=== PATIENT | male | born 1950 | race Caucasian/White ===

== ENCOUNTER 2017-04-09 09:32 | Day surgery (SDC) | payer OTHER ==
[2017-04-09] MEDS ORDERED: LIDOCAINE HCL/PF 2% SDV 5ML VIAL ONE (09:51)
[2017-04-09] MEDS ORDERED: PROPOFOL 20 ML ONE ×5 (09:51)
[2017-04-09 10:00] VITALS: BMI 23.3
[2017-04-09 11:08] VITALS: TEMP 97.5
[2017-04-09 14:55] VITALS: BP 107/64; PULSE 69
== END 2017-04-09 12:50 | disposition home or self-care (01) ==
LOC: JASU-ENDO 09:32
PROVIDERS: ATTEND Internal Medicine Gastroenterology
PROC: 0DJD8ZZ Inspection of Lower Intestinal Tract, Via Natural or Artificial Opening Endoscopic (ICD-10-PCS; principal; 2017-04-09 10:00)
DX: Z12.11 Encounter for screening for malignant neoplasm of colon (principal); Z86.010 Personal history of colon polyps; K57.30 Diverticulosis of large intestine without perforation or abscess without bleeding; Z79.891 Long term (current) use of opiate analgesic; M54.89 Other dorsalgia

== ENCOUNTER 2017-09-09 07:41 | Day surgery (SDC) | payer OTHER ==
[2017-09-04 12:57] VITALS: BMI 20.9
[2017-09-09] MEDS ORDERED: BSS (NA/CA/MG/K) BALANCED SALT SOLUTION OPHTH SOLN 15 ML BOTTLE ONE (08:03)
[2017-09-09] MEDS ORDERED: CARBACHOL 0.01% INTRA-OCULAR 1.5 ML VIAL ONE (08:04)
[2017-09-09] MEDS: PHENYLEPHRINE 2.5% OPHTH SOLN 15 ML BOTTLE ONE ×3 (08:20→08:30)
[2017-09-09] MEDS: TROPICAMIDE 1% OPHTH SOLN 15 ML BOTTLE ONE ×3 (08:20→08:30)
[2017-09-09] MEDS: CIPROFLOXACIN 0.3% EYE DROPS 5 ML BOTTLE ONE ×3 (08:20→08:30)
[2017-09-09] MEDS: CYCLOPENTOLATE 2% OPHTH SOLN 2 ML BOTTLE ONE ×3 (08:20→08:30)
[2017-09-09] MEDS ORDERED: MIDAZOLAM HCL 2 MG/2 ML SINGLE DOSE VIAL ONE ×2 (09:01→09:28)
[2017-09-09] MEDS ORDERED: ONDANSETRON 4 MG/2 ML VIAL ONE (09:23)
[2017-09-09 10:20] VITALS: TEMP 97.5
[2017-09-09 10:52] VITALS: BP 100/73; PULSE 60
--- NOTE | 2017-09-11 11:08 | OP ---
DATE OF OPERATION: 09/09/2017 OPERATIVE PROCEDURE: Lens Phacoemulsification with Posterior Chamber Intraocular Lens Placement, Right Eye PREOPERATIVE DIAGNOSIS: Visually Significant Cataract of Right Eye POSTOPERATIVE DIAGNOSIS: Visually Significant Cataract of Right Eye SURGEON: Kulwant Shaw M.D. ANESTHESIA: MAC PROCEDURE: The patient was brought to the operating room and placed under monitored anesthesia care by Anesthesia. A drop of Tetracaine was then placed over the right eye. The patient was then prepped and draped in the usual sterile manner. A speculum was then placed over the right eye. The eye was then well irrigated with copious amounts of BSS (balanced salt solution). The operating microscope was then moved into position. A paracentesis was performed using a 15 degree blade. At this point 0.5 mL of 1% preservative free-lidocaine was injected into the anterior chamber. Amvisc plus was then injected into the anterior chamber. A clear corneal incision was then formed using a 2.2-mm keratome. A capsulorrhexis was then performed in a continuous circular fashion beginning with a cystotome completed with an Utratas forceps. Hydrodissection was then performed using BSS on a cannula. The phaco probe was then introduced through the corneal wound and the cataract was removed using the phaco chop technique. Approximately 3 seconds of absolute phaco time was used. The remaining cortex was then removed using irrigation and aspiration with an I/A probe. The capsule was then filled with regular Amvisc and the capsule was noted to be intact. A previously selected foldable posterior chamber intraocular lens was then injected into the capsule through the corneal wound using a lens injector. It was then dialed into position using a Sinskey hook. The Amvisc was then removed using irrigation and aspiration. Miostat was then injected through the paracentesis to constrict the pupil. The paracentesis and corneal wound were then hydrated and noted to be water tight. A drop of Maxitrol was then placed over the eye. The speculum was removed and clear shield was taped over the eye. The patient tolerated the procedure well and there were no surgical complications. The patient was asked to follow up in my office the next day. EDILSON MANCIA M.D. [id number]
== END 2017-09-09 10:50 | disposition home or self-care (01) ==
LOC: FASU 07:41
PROVIDERS: ATTEND Ophthalmology
PROC: 08RJ3JZ Replacement of Right Lens with Synthetic Substitute, Percutaneous Approach (ICD-10-PCS; principal; 2017-09-09 09:18)
DX: H26.8 Other specified cataract (principal)

== ENCOUNTER 2020-08-02 17:32 | Emergency (ER) | payer OTHER ==
--- OUTSIDE RECORDS SUMMARY | 2020-08-02 17:40 | XMS ---
:1950 Author Organization [facility] Care Team Providers Name Role Phone Kojo Mejia Unavailable Unavailable Roberto, Kojo Unavailable Unavailable Roberto, Kojo Unavailable Unavailable Roberto, Kojo Unavailable Unavailable Roberto, Kojo Unavailable Unavailable Roberto, Kojo Unavailable Unavailable Roberto, Kojo Unavailable Unavailable Roberto, Kojo Unavailable Unavailable Roberto, Kojo Unavailable Unavailable LUIS ANTONIO MEDRANO Unavailable Unavailable YVONNE HERNANDEZ Unavailable Unavailable Re-disclosure Warning The records that you are about to access may contain information from federally- assisted alcohol or drug abuse programs. If such information is present, then the following federally mandated warning applies: This information has been disclosed to you from records protected by federal confidentiality rules (42 CFR part 2). The federal rules prohibit you from making any further disclosure of this information unless further disclosure is expressly permitted by the written consent of the person to whom it pertains or as otherwise permitted by 42 CFR part 2. A general authorization for the release of medical or other information is NOT sufficient for this purpose. The Federal rules restrict any use of the information to criminally investigate or prosecute any alcohol or drug abuse patient.The records that you are about to access may contain highly sensitive health information, the redisclosure of which is protected by Article 27-F of the [place] State Public Health law. If you continue you may haveaccess to information: Regarding HIV / AIDS; Provided by facilities licensed or operated by the [facility] Office of Mental Health; or Provided by the [facility] Office for People With Developmental Disabilities. If such information is present, then the following [facility] mandated warning applies: This information has been disclosed to you from confidential records which are protected by state law. State law prohibits you from making any further disclosure of this information without the specific written consent of the person to whom it pertains, or as otherwise permitted by law. Any unauthorized further disclosure in violation of state law may result in a fine or retirement sentence or both. A general authorization for the release of medical or other information is NOT sufficient authorization for further disclosure. Encounters Encounter Providers Location Date Indications Data Source(s ) Attender: Kojo 04/20/2020 [facility] ( [facility] 12:00:00 AM EDT Medical, ) Office Outpatient Attender: DAVID 03/25/2020 10:04:00 Z03.818 [facility] StreetCHERELLE RendonAdmitter: [facility] YVONNE HERNANDEZ [facility] n E.Referrer: YVONNE HERNANDEZ Z03.818 Outpatient Attender: MITCHELL 03/10/2020 03:50:00 Z03.818 [facility]O [facility] Z03.818 Outpatient Attender: MITCHELL 02/25/2020 03:12:00 Z03.818 [facility] OSMANY [facility]O [facility] Z03.818 Outpatient Attender: MITCHELL, 01/05/2020 06:00:00 Z03.818 [facility] MIT[facility]LL [facility] Z03.818 Medications Medication Brand Start Product Dose Route Administrative Pharmacy [facility] Indications Reaction Description Data Name Date Form Instructions Instructions Source(s) Alprazolam ALPRAZ 04/09/ TABLET 60 complet ALPRA ZOLAM [facility] (St 0.5 MG Oral OLAM:3 2019 ed [facility] Tablet 83977 12:00: Medical, ALPRAZOLAM: 00 AM PC) [id number] EDT Alprazolam ALPRAZ 03/10/ TABLET 60 complet ALPRA ZOLAM [facility] (St 0.5 MG Oral OLAM:3 2019 ed [facility] Tablet 11364 12:00: Medical, ALPRAZOLAM: 00 AM PC) [id number] EDT 120 ACTUAT SYMBIC 02/07/ AEROSOL 3 complet SYMB ICORT [facility] (St Budesonide ORT:12 2019 ed [facility] 0.16 64597 12:00: Medical, MG/ACTUAT / 00 AM PC) formoterol EDT fumarate 0.0045 MG/ACTUAT Metered Dose Inhaler [Symbicort] SYMBICORT:1 [id number] Alprazolam ALPRAZ 02/07/ TABLET 60 complet ALPRA ZOLAM [facility] (St 0.5 MG Oral OLAM:3 2019 ed [facility] Tablet 84791 12:00: Medical, ALPRAZOLAM: 00 AM PC) [id number] EDT Alprazolam ALPRAZ 01/05/ TABLET 60 complet ALPRA ZOLAM [facility] (St 0.5 MG Oral OLAM:3 2019 ed [facility] Tablet 91797 12:00: Medical, ALPRAZOLAM: 00 AM PC) [id number] EDT MEDROL 11/18/ 6 complet MEDROL [facility] (St DOSEPAK:834 2019 ed DOSEPAK [facility] 023 12:00: Medical, 00 AM PC) EST 200 ACTUAT PROAIR 11/18/ AEROSOL 1 complet PROA IR HFA [facility] (St Albuterol HFA:74 2019 ed [facility] 0.09 5752 12:00: Medical, MG/ACTUAT 00 AM PC) Metered EST Dose Inhaler [ProAir] PROAIR HFA:[id number] Insurance Providers Payer name Policy type Policy ID Covered Covered constitution party's Policy P mami / Coverage constitution party ID relationship to Go Inf ormation type go [employer] [id number] SP [id number] [employer]ANCE [employer] MEDICARE [id number] SP [id number] N02 [employer] [id number] 1 [id number] [place] [id number] 1 [id number] PART B DOWNSTATE INS [id number] SP [id number] MEDICARE [id number] SP [id number] [id number] [employer] LIFE [id number] SP [id number] [place]LOBE [place] [id number] SP [id number] [place] [id number] SP [id number] [place] [id number] SP [id number] A Problems, Conditions, and Diagnoses Code Display Name Description Problem Type Effective Data Sour ce(s) Dates B97.32 Oncovirus as the ONCOVIRUS THE Problem 04/20/2020 ME [facility] (St cause of diseases CAUSE OF DISEASES 12:00:00 AM [facility], classified CLASSIFIED EDT PC) elsewhere ELSEWHERE Z76.0 Encounter for ENCOUNTER FOR Problem 11/18/2019 [facility] ( St issue of repeat ISSUE OF REPEAT 12:00:00 AM [facility], prescription PRESCRIPTION EST PC) I87.2 Venous VENOUS Problem 11/11/2019 [facility] (St insufficiency INSUFFICIENCY 12:00:00 AM [facility], (chronic) (CHRONIC) EST PC) (peripheral) (PERIPHERAL) M79.602 Pain in left arm PAIN IN LEFT ARM Problem 11/11/2019 [facility] (St 12:00:00 AM [facility], EST PC) R60.0 Localized edema LOCALIZED EDEMA Problem 06/10/2019 [facility] EN (St 12:00:00 AM [facility], EDT PC) Z03.818 Encounter for ENCNTR FOR OBS FOR Diagnosis 03/25/2020 [place] observation for SUSP EXPSR TO OTH 10:04:00 AM [facility] suspected exposure BIOLG AGENTS RULED EDT Care to other [employer] biological agents ruled out Surgeries/Procedures Procedure Description Date Indications Data Source(s) Documentation of current 04/20/2020 [facility] ([facility] (procedure) 12:00:00 AM [facility] Zendejas) OFFICE OUTPATIENT VISIT 04/20/2020 [facility] ([facility] 15 MINUTES 12:00:00 AM CECILIA Forde) Documentation of current 11/18/2019 [facility] ([facility] (procedure) 12:00:00 AM CECILIA Arenas) Documentation of current 11/18/2019 [facility] ([facility] (procedure) 12:00:00 AM CECILIA Arenas) Documentation of current 11/18/2019 [facility] ([facility] (procedure) 12:00:00 AM CECILIA Arenas) Documentation of current 11/18/2019 [facility] ([facility] (procedure) 12:00:00 AM CECILIA Arenas) Documentation of current 11/18/2019 [facility] ([facility] (procedure) 12:00:00 AM CECILIA Arenas) Documentation of current 11/18/2019 [facility] ([facility] (procedure) 12:00:00 AM CECILIA Arenas) Documentation of current 11/18/2019 [facility] ([facility] (procedure) 12:00:00 AM CECILIA Arenas) Documentation of current 11/18/2019 [facility] ([facility] (procedure) 12:00:00 AM EST Grayson douglass, CECILIA) OFFICE OUTPATIENT VISIT 11/18/2019 [facility] ([facility] 15 MINUTES 12:00:00 AM PATRICIA Tovar, PC) Documentation of current 11/11/2019 [facility] ([facility] (procedure) 12:00:00 AM PATRICIA douglass, PC) Documentation of current 11/11/2019 [facility] ([facility] (procedure) 12:00:00 AM CECILIA Arenas) Documentation of current 11/11/2019 [facility] ([facility] (procedure) 12:00:00 AM CECILIA Arenas) OFFICE OUTPATIENT VISIT 11/11/2019 [facility] ([facility] 25 MINUTES 12:00:00 AM PATRICIA Tovar PC) Documentation of current 06/10/2019 [facility] ([facility] (procedure) 12:00:00 AM HERMINIA douglass, CECILIA) Documentation of current 06/10/2019 [facility] ([facility] (procedure) 12:00:00 AM CECILIA Zendejas) Documentation of current 06/10/2019 [facility] ([facility] (procedure) 12:00:00 AM HERMINIA douglass, CECILIA) Documentation of current 06/10/2019 [facility] ([facility] (procedure) 12:00:00 AM CECILIA Zendejas) Documentation of current 06/10/2019 [facility] ([facility] (procedure) 12:00:00 AM HERMINIA douglass, PC) Documentation of current 06/10/2019 [facility] ([facility] (procedure) 12:00:00 AM CECILIA Zendejas) Documentation of current 06/10/2019 [facility] ([facility] (procedure) 12:00:00 AM HERMINIA douglass, PC) OFFICE OUTPATIENT VISIT 06/10/2019 [facility] ([facility] 25 MINUTES 12:00:00 AM EDT Medical, PC) Results ID Date Data Source [id number] 07/10/2020 01:29:00 PM EDT [facility] Name Value Range Interpretation Code Description Data Chelsy rce(s) Supporting Document(s ) SARS-CoV-2 [facility] Ql KEYANNA+probe This lab was ordered by [facility] nd reported by [facility]. ID Date Data Source [id number] 03/25/2020 12:00:00 AM EDT [facility] Name Value Range Interpretation Code Description Data Chelsy rce(s) Supporting Document(s ) 2018-nCoV [facility] RNA XXX KEYANNA+probe- Imp This lab was ordered by [facility] and reported by [email or web address] ID Date Data Source [id number] 03/10/2020 12:00:00 AM EDT [facility] Name Value Range Interpretation Code Description Data Chelsy rce(s) Supporting Document(s ) nCoV [facility] RNA XXX KEYANNA+probe- Imp This lab was ordered by [facility] and reported by [email or web address] ID Date Data Source [id number] 02/25/2020 12:00:00 AM EDT [facility] Name Value Range Interpretation Code Description Data Chelsy rce(s) Supporting Document(s ) nCoV [facility] RNA XXX KEYANNA+probe- Imp This lab was ordered by [facility] and reported by [email or web address] ID Date Data Source [id number] 02/05/2020 12:00:00 AM EDT [facility] Name Value Range Interpretation Code Description Data Chelsy rce(s) Supporting Document(s ) nCoV [facility] RNA XXX KEYANNA+probe- Imp This lab was ordered by [facility] and reported by [email or web address] 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[employer]/ for [employer]/ for third time-has 5 third time-has 5 kids kids Smoking 04/20/2020 Unknown if ever completed Unknown if ever [facility] (St 12:00:00 AM EDT smoked smoked [facility], ) Vital Signs ID Date Data Source UNK Name Value Range Interpretation Code Description Data Source(s) Heart rate 94 /min 94 /min [facility] ([facility] [place], [place] , ) Respiratory rate 15 /min 15 /min [facility] ( [facility]) Body mass index 22.6 kg/m2 22.6 kg/m2 [facility] (S t (BMI) [Ratio] [facility], ) Diastolic blood 70 mm[Hg] 70 mm[Hg] [facility] (S t pressure [facility]) Systolic blood 114 mm[Hg] 114 mm[Hg] [facility] ([facility]) Body weight 153 lb 153 lb [facility] ([facility]) Body height 69 in 69 in [facility] ([facility]) Heart rate 76 /min 76 /min [facility] ([facility]) Respiratory rate 16 /min 16 /min [facility] ( [facility]) Body temperature 98.2 F 98.2 F [facility] ( [facility]) Diastolic blood 72 mm[Hg] 72 mm[Hg] [facility] (S t pressure [facility]) Systolic blood 116 mm[Hg] 116 mm[Hg] [facility] ([facility]) Heart rate 70 /min 70 /min [facility] ([facility]) Respiratory rate 15 /min 15 /min [facility] ( [facility]) Body mass index 23.3 kg/m2 23.3 kg/m2 [facility] (S t (BMI) [Ratio] [facility], ) Diastolic blood 70 mm[Hg] 70 mm[Hg] [facility] (S t pressure [facility]) Systolic blood 116 mm[Hg] 116 mm[Hg] [facility] ([facility]) Body weight 158 lb 158 lb [facility] ([facility]) Body height 69 in 69 in [facility] ([facility]) Heart rate 88 /min 88 /min [facility] ([facility]) Respiratory rate 14 /min 14 /min [facility] ( [facility]) Inhaled oxygen 97 % 97 % [facility] ([facility]) Body mass index 24.7 kg/m2 24.7 kg/m2 [facility] (S (BMI) [Ratio] [facility]) Diastolic blood 76 mm[Hg] 76 mm[Hg] [facility] (S t pressure [facility]) Systolic blood 110 mm[Hg] 110 mm[Hg] [facility] ([facility]) Body weight 167 lb 167 lb [facility] ([facility]) Body height 69 in 69 in [facility] ([facility])
[2020-08-02 17:41] VITALS: BP 123/74; PULSE 88; TEMP 97.9; BMI 20.9
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
[2020-08-02] MEDS ORDERED: SODIUM CHLORIDE 0.9% 1000 ML INFUS.BAG IV ONE (18:02)
[2020-08-02] MEDS ORDERED: ACETAMINOPHEN 1000 MG/100 ML VIAL (NON FORMULARY) IVPB ONE (18:02)
[2020-08-02] MEDS ORDERED: ACETAMINOPHEN INJECTION 100 ML IVPB ONE (18:20)
[2020-08-02 18:53] LABS: ALBUMIN 4.4 g/dl (3.4-5.0); BILIRUBIN,TOTAL 1.2 mg/dl (0.2-1); CALCIUM 8.7 mg/dl (8.5-10); CREATININE 0.9 mg/dl (0.55-1.3); TOT PROT 7.7 g/dl (6.4-8.2)
[2020-08-02 18:55] LABS: POTASSIUM 5.4 mmol/L (3.5-5.1)
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
== END 2020-08-02 21:32 | disposition home or self-care (01) ==
LOC: FER 17:32
PROC: 3E0333Z Introduction of Anti-inflammatory into Peripheral Vein, Percutaneous Approach (ICD-10-PCS; principal; 2020-08-02)
DX: S83.91XA Sprain of unspecified site of right knee, initial encounter (principal)
CPT/HCPCS: 36415; 71046-TC-FY; 71260-TC; 73030-TC-LT-FY; 73130-TC-LT-FY; 73562-TC-RT-FY; 80053; 99285-25; J0131; Q9967

== ENCOUNTER 2020-11-05 19:57 | Emergency (ER) | payer OTHER ==
[2020-11-05 20:21] VITALS: BP 146/86; PULSE 83; TEMP 97.8; BMI 22.9
== END 2020-11-05 20:16 | disposition home or self-care (01) ==
LOC: FER 19:57
DX: Z73.6 Limitation of activities due to disability (principal)
CPT/HCPCS: 99283-25

== ENCOUNTER 2021-11-22 22:10 | Inpatient (IN) | payer OTHER ==
[2021-11-22 23:34] LABS: ALBUMIN 2.3 g/dl (3.4-5.0); BILIRUBIN,TOTAL 0.4 mg/dl (0.2-1); CALCIUM 8.7 mg/dl (8.5-10); CREATININE 0.8 mg/dl (0.55-1.3); TOT PROT 7.3 g/dl (6.4-8.2)
[2021-11-22] MEDS ORDERED: SODIUM CHLORIDE 1,000 ML IV STA (23:44)
[2021-11-23 01:12] LABS: BASO % 0.3 % (0-2.0); EOS % 0.1 % (0-4.5); HEMATOCRIT 25.3 % (35.4-49); HEMOGLOBIN 8.6 GM/dL (11.7-16.9); LYMPH % 10.1 % (8-40); MCHC 33.8 g/dl (32.0-35.9); MEAN CELL VOLUME 91.6 fl (80-96); MEAN PLT VOLUME 7.4 fl (7.5-11.1); MONO % 7.3 % (3.8-10.2); NEUT % 82.2 % (42.8-82.8); PLATELET COUNT 789 10^3/uL (134-434); RBC 2.76 M/mm3 (4.00-5.60); RDW 14.3 % (11.9-15.9)
[2021-11-23 07:49] LABS: EPITHELIAL CELLS RARE /hpf; URIC ACID CRYSTALS 1+ /hpf (NONE SEEN); URINE MUCUS 1+
[2021-11-23 08:18] LABS: COCAINE, UR NEGATIVE (NEGATIVE); PHENCYCLIDINE,URINE NEGATIVE (NEGATIVE); URINE BARBITURATES NEGATIVE (NEGATIVE)
[2021-11-23 08:19] LABS: ALBUMIN 1.7 g/dl (3.4-5.0); BILIRUBIN,TOTAL 0.4 mg/dl (0.2-1); CALCIUM 7.9 mg/dl (8.5-10); CREATININE 0.8 mg/dl (0.55-1.3); MAGNESIUM 1.7 mg/dL (1.8-2.4); TOT PROT 5.6 g/dl (6.4-8.2)
[2021-11-23 08:40] LABS: METHADONE, UR POSITIVE (NEGATIVE); OPIATES, URI POSITIVE (NEGATIVE); URINE AMPHETAMINES NEGATIVE (NEGATIVE); URINE BENZODIAZEPINES POSITIVE (NEGATIVE)
[2021-11-23] MEDS ORDERED: methaDONE HCL 40 MG DISPERSABLE TABLET ONE (09:16)
[2021-11-23] MEDS ORDERED: methaDONE HCL 10 MG TABLET ONE (09:16)
[2021-11-23] MEDS ORDERED: MAGNESIUM SULF 50% (8.12 MEQ/2 ML-1 GM VIAL) IVPB ONE (09:31)
[2021-11-23] MEDS ORDERED: ACETAMINOPHEN 325 MG TABLET (FP) PO PRN (09:37)
[2021-11-23 09:46] LABS: BASO % 0.1 % (0-2.0); EOS % 0.1 % (0-4.5); HEMOGLOBIN 7.3 GM/dL (11.7-16.9); LYMPH % 12.4 % (8-40); MCH 30.1 pg (25.7-33.7); MCHC 33.2 g/dl (32.0-35.9); MEAN CELL VOLUME 90.8 fl (80-96); MEAN PLT VOLUME 6.7 fl (7.5-11.1); MONO % 9.6 % (3.8-10.2); NEUT % 77.8 % (42.8-82.8); PLATELET COUNT 538 10^3/uL (134-434); RBC 2.43 M/mm3 (4.00-5.60); WHITE BLOOD COUNT 12.4 K/mm3 (4.0-10.0)
[2021-11-23] MEDS ORDERED: methaDONE 80 MG, methaDONE 20 MG PO SCH (10:00)
[2021-11-23] MEDS ORDERED: MAGNESIUM 1GM/D5W - 1 GM/100 ML IVPB IVPB ONE (10:00)
[2021-11-23] MEDS ORDERED: methaDONE HCL 40 MG DISPERSABLE TABLET PO SCH (10:00)
[2021-11-23] MEDS ORDERED: CEFTRIAXONE 1 GM in DEXTROSE 5%-WATER - 50 ML IVPB SCH (11:15)
[2021-11-23] MEDS ORDERED: DOXYCYCLINE INJECTION 100 MG in DEXTROSE 5%-WATER 100 ML IVPB SCH (11:30)
[2021-11-23] MEDS ORDERED: PIPERACILLIN/TAZOB 3.375 GM 3.375 GM in DEXTROSE 5%-WATER - 50 ML IVPB SCH (11:30)
[2021-11-23] MEDS ORDERED: DEXTROSE 5%-WATER - 50 ML IVPB ONE ×2 (12:44→17:14)
[2021-11-23] MEDS ORDERED: PIPERACILLIN/TAZOBACTAM 3.375 GM VIAL IVPB ONE ×2 (12:44→17:14)
[2021-11-23] MEDS ORDERED: ALPRAZolam 0.25 MG TABLET PO SCH (13:15)
[2021-11-23] MEDS: POTASSIUM CHLORIDE TABS 20 MEQ TABLET.ER (FP) PO SCH ×2 (15:00→20:00)
[2021-11-23] MEDS ORDERED: ENOXAPARIN NA (PORCINE) 40 MG/0.4 ML DISP.SYRIN SQ SCH (15:00)
[2021-11-23] MEDS: SODIUM CHLORIDE 1,000 ML IV SCH (17:00)
[2021-11-23] MEDS: PIPERACILLIN/TAZOB 3.375 GM 3.375 GM in DEXTROSE 5%-WATER - 50 ML IVPB SCH (17:22)
[2021-11-23] MEDS ORDERED: POTASSIUM CHLORIDE TABS 20 MEQ TABLET.ER (FP) PO SCH (21:00)
[2021-11-23] MEDS: ALPRAZolam 0.25 MG TABLET PO SCH (23:15)
[2021-11-23] MEDS ORDERED: DEXTROSE 50%-WATER 25 GM/50 ML DISP.SYRIN ONE (23:46)
[2021-11-24] MEDS ORDERED: DEXTROSE 50%-WATER - 25 GM/50 ML VIAL IVPUSH ONE (00:04)
[2021-11-24] MEDS ORDERED: PIPERACILLIN/TAZOBACTAM 3.375 GM VIAL IVPB ONE ×3 (01:08→17:31)
[2021-11-24] MEDS ORDERED: DEXTROSE 5%-WATER - 50 ML IVPB ONE ×3 (01:09→17:31)
[2021-11-24] MEDS: ACETAMINOPHEN 325 MG TABLET (FP) PO PRN ×2 (01:43→22:14)
[2021-11-24] MEDS: PIPERACILLIN/TAZOB 3.375 GM 3.375 GM in DEXTROSE 5%-WATER - 50 ML IVPB SCH ×3 (02:28→17:36)
[2021-11-24] MEDS ORDERED: SODIUM CHLORIDE 500 ML IV STA (02:52)
[2021-11-24 03:23] LABS: HEMATOCRIT 21.4 % (35.4-49); MCH 29.5 pg (25.7-33.7); MCHC 32.7 g/dl (32.0-35.9); MEAN CELL VOLUME 90.1 fl (80-96); MEAN PLT VOLUME 6.3 fl (7.5-11.1); PLATELET COUNT 502 10^3/uL (134-434); RBC 2.38 M/mm3 (4.00-5.60); WHITE BLOOD COUNT 13.4 K/mm3 (4.0-10.0)
[2021-11-24 03:46] LABS: CALCIUM 7.9 mg/dL (8.5-10.1)
[2021-11-24 03:49] LABS: CREATININE 0.7 mg/dL (0.55-1.3)
[2021-11-24 03:51] LABS: BILIRUBIN,TOTAL 0.3 mg/dL (0.2-1); TOT PROT 5.8 g/dl (6.4-8.2)
[2021-11-24 04:15] LABS: ALBUMIN 1.6 g/dl (3.4-5.0)
[2021-11-24] MEDS ORDERED: LORazepam 2 MG/ML SDV VIAL IVPUSH ONE (05:36)
[2021-11-24] MEDS ORDERED: BISACODYL 5 MG TABLET.DR (FP) PO ONE (05:52)
[2021-11-24 09:02] LABS: BASO % 0.3 % (0-2.0); EOS % 0.2 % (0-4.5); HEMATOCRIT 24.5 % (35.4-49); HEMOGLOBIN 7.8 GM/dL (11.7-16.9); LYMPH % 9.9 % (8-40); MCH 29.7 pg (25.7-33.7); MEAN CELL VOLUME 92.8 fl (80-96); MEAN PLT VOLUME 6.2 fl (7.5-11.1); MONO % 8.9 % (3.8-10.2); NEUT % 80.7 % (42.8-82.8); PLATELET COUNT 574 10^3/uL (134-434); RBC 2.64 M/mm3 (4.00-5.60); RDW 14.1 % (11.9-15.9)
[2021-11-24] MEDS ORDERED: methaDONE HCL 10 MG TABLET ONE ×3 (09:28→09:43)
[2021-11-24] MEDS ORDERED: methaDONE HCL 40 MG DISPERSABLE TABLET ONE (09:43)
[2021-11-24 09:50] LABS: BLOOD UREA NITROGEN 13.4 mg/dL (7-18)
[2021-11-24 09:51] LABS: ALBUMIN 1.6 g/dl (3.4-5.0)
[2021-11-24 09:52] LABS: MAGNESIUM 2.1 mg/dL (1.8-2.4)
[2021-11-24 09:54] LABS: PHOSPHOROUS 3.1 mg/dL (2.5-4.9)
[2021-11-24 09:55] LABS: CREATININE 0.6 mg/dL (0.55-1.3)
[2021-11-24 09:56] LABS: BILIRUBIN,TOTAL 0.3 mg/dL (0.2-1); TOT PROT 6.1 g/dl (6.4-8.2)
[2021-11-24] MEDS: methaDONE 80 MG, methaDONE 20 MG PO SCH (10:21)
[2021-11-24] MEDS: ALPRAZolam 0.25 MG TABLET PO SCH ×2 (10:22→22:09)
[2021-11-24] MEDS: ENOXAPARIN NA (PORCINE) 40 MG/0.4 ML DISP.SYRIN SQ SCH (10:24)
[2021-11-24] MEDS: SODIUM CHLORIDE 1,000 ML IV SCH ×2 (14:28→17:38)
[2021-11-24 15:51] VITALS: BMI 19.2
[2021-11-24] MEDS: ALBUTEROL SO4 2.5/IPRATROPIUM 0.5 INH SOL 3 ML VIAL.NEB. NEB SCH ×2 (16:35→20:46)
[2021-11-24] MEDS ORDERED: PIPERACILLIN/TAZOB 3.375 GM 3.375 GM in DEXTROSE 5%-WATER - 50 ML IVPB SCH (18:00)
[2021-11-24] MEDS: SENNOSIDES 8.6MG TABLET (FP) PO SCH (22:09)
[2021-11-25] MEDS ORDERED: DEXTROSE 5%-WATER - 50 ML IVPB ONE ×3 (00:48→17:15)
[2021-11-25] MEDS ORDERED: PIPERACILLIN/TAZOBACTAM 3.375 GM VIAL IVPB ONE ×3 (00:48→17:15)
[2021-11-25] MEDS: PIPERACILLIN/TAZOB 3.375 GM 3.375 GM in DEXTROSE 5%-WATER - 50 ML IVPB SCH ×3 (01:01→17:56)
[2021-11-25] MEDS: SODIUM CHLORIDE 1,000 ML IV SCH ×2 (01:40→19:19)
[2021-11-25] MEDS ORDERED: methaDONE HCL 40 MG DISPERSABLE TABLET ONE ×2 (05:23→11:19)
[2021-11-25] MEDS ORDERED: methaDONE HCL 10 MG TABLET ONE ×2 (05:23→11:19)
[2021-11-25] MEDS: methaDONE 80 MG, methaDONE 20 MG PO SCH ×2 (06:19→11:20)
[2021-11-25] MEDS: ALBUTEROL SO4 2.5/IPRATROPIUM 0.5 INH SOL 3 ML VIAL.NEB. NEB SCH ×4 (07:30→20:34)
[2021-11-25] MEDS: FLUTICASONE PROP 0.05% 16 GM NASAL SPRAY NS SCH ×2 (09:35→21:25)
[2021-11-25] MEDS: ENOXAPARIN NA (PORCINE) 40 MG/0.4 ML DISP.SYRIN SQ SCH (09:36)
[2021-11-25] MEDS: ALPRAZolam 0.25 MG TABLET PO SCH ×2 (09:36→21:26)
[2021-11-25] MEDS: SENNOSIDES 8.6MG TABLET (FP) PO SCH (21:27)
[2021-11-25] MEDS: ACETAMINOPHEN 325 MG TABLET (FP) PO PRN (21:27)
[2021-11-26] MEDS ORDERED: PIPERACILLIN/TAZOBACTAM 3.375 GM VIAL IVPB ONE ×3 (00:52→17:34)
[2021-11-26] MEDS ORDERED: DEXTROSE 5%-WATER - 50 ML IVPB ONE ×3 (00:53→17:34)
[2021-11-26] MEDS: PIPERACILLIN/TAZOB 3.375 GM 3.375 GM in DEXTROSE 5%-WATER - 50 ML IVPB SCH ×3 (01:08→17:47)
[2021-11-26] MEDS: methaDONE 80 MG, methaDONE 20 MG PO SCH ×2 (05:58→12:10)
[2021-11-26] MEDS: SODIUM CHLORIDE 1,000 ML IV SCH ×2 (06:28→17:48)
[2021-11-26] MEDS: ALBUTEROL SO4 2.5/IPRATROPIUM 0.5 INH SOL 3 ML VIAL.NEB. NEB SCH ×4 (07:30→20:54)
[2021-11-26] MEDS: ALPRAZolam 0.25 MG TABLET PO SCH ×2 (09:26→21:10)
[2021-11-26] MEDS: ENOXAPARIN NA (PORCINE) 40 MG/0.4 ML DISP.SYRIN SQ SCH (09:26)
[2021-11-26] MEDS: FLUTICASONE PROP 0.05% 16 GM NASAL SPRAY NS SCH ×2 (09:26→21:10)
[2021-11-26] MEDS ORDERED: methaDONE HCL 10 MG TABLET ONE (12:09)
[2021-11-26] MEDS ORDERED: methaDONE HCL 40 MG DISPERSABLE TABLET ONE (12:10)
[2021-11-26] MEDS: SENNOSIDES 8.6MG TABLET (FP) PO SCH (21:10)
[2021-11-26] MEDS: ACETAMINOPHEN 325 MG TABLET (FP) PO PRN (21:10)
[2021-11-27] MEDS ORDERED: PIPERACILLIN/TAZOBACTAM 3.375 GM VIAL IVPB ONE ×3 (00:08→16:59)
[2021-11-27] MEDS ORDERED: DEXTROSE 5%-WATER - 50 ML IVPB ONE ×3 (00:09→16:59)
[2021-11-27] MEDS: PIPERACILLIN/TAZOB 3.375 GM 3.375 GM in DEXTROSE 5%-WATER - 50 ML IVPB SCH ×3 (01:02→18:04)
[2021-11-27] MEDS: SODIUM CHLORIDE 1,000 ML IV SCH ×2 (02:22→18:08)
[2021-11-27] MEDS: ACETAMINOPHEN 325 MG TABLET (FP) PO PRN (04:15)
[2021-11-27] MEDS: methaDONE 80 MG, methaDONE 20 MG PO SCH ×2 (06:46→11:13)
[2021-11-27] MEDS: ALBUTEROL SO4 2.5/IPRATROPIUM 0.5 INH SOL 3 ML VIAL.NEB. NEB SCH ×4 (07:35→20:00)
[2021-11-27] MEDS ORDERED: methaDONE HCL 40 MG DISPERSABLE TABLET ONE (10:48)
[2021-11-27] MEDS ORDERED: methaDONE HCL 10 MG TABLET ONE (10:48)
[2021-11-27 10:57] LABS: HEMATOCRIT 22.5 % (35.4-49); HEMOGLOBIN 7.3 GM/dL (11.7-16.9); MCH 30.4 pg (25.7-33.7); MCHC 32.6 g/dl (32.0-35.9); MEAN CELL VOLUME 93.1 fl (80-96); MEAN PLT VOLUME 6.5 fl (7.5-11.1); PLATELET COUNT 530 10^3/uL (134-434); RBC 2.42 M/mm3 (4.00-5.60); RDW 14.2 % (11.9-15.9); WHITE BLOOD COUNT 9.4 K/mm3 (4.0-10.0)
[2021-11-27] MEDS: ENOXAPARIN NA (PORCINE) 40 MG/0.4 ML DISP.SYRIN SQ SCH (11:15)
[2021-11-27] MEDS: ALPRAZolam 0.25 MG TABLET PO SCH ×2 (11:15→22:42)
[2021-11-27 11:16] LABS: ALBUMIN 1.6 g/dl (3.4-5.0); BLOOD UREA NITROGEN 9.9 mg/dL (7-18); CALCIUM 8.5 mg/dL (8.5-10.1)
[2021-11-27] MEDS: FLUTICASONE PROP 0.05% 16 GM NASAL SPRAY NS SCH ×2 (11:17→22:45)
[2021-11-27 11:18] LABS: CREATININE 0.6 mg/dL (0.55-1.3)
[2021-11-27 11:20] LABS: BILIRUBIN,TOTAL 0.1 mg/dL (0.2-1)
[2021-11-27] MEDS ORDERED: IRON SUCROSE INJECTION 200 MG in SODIUM CHLORIDE 90 ML IVPB ONE (14:00)
[2021-11-27] MEDS: SENNOSIDES 8.6MG TABLET (FP) PO SCH (22:43)
[2021-11-28] MEDS ORDERED: PIPERACILLIN/TAZOBACTAM 3.375 GM VIAL IVPB ONE ×3 (01:18→17:15)
[2021-11-28] MEDS ORDERED: DEXTROSE 5%-WATER - 50 ML IVPB ONE ×3 (01:18→17:15)
[2021-11-28] MEDS: PIPERACILLIN/TAZOB 3.375 GM 3.375 GM in DEXTROSE 5%-WATER - 50 ML IVPB SCH ×3 (02:47→17:08)
[2021-11-28] MEDS: ALBUTEROL SO4 2.5/IPRATROPIUM 0.5 INH SOL 3 ML VIAL.NEB. NEB SCH ×4 (07:59→20:14)
[2021-11-28] MEDS ORDERED: methaDONE HCL 10 MG TABLET ONE (09:38)
[2021-11-28] MEDS ORDERED: methaDONE HCL 40 MG DISPERSABLE TABLET ONE (09:39)
[2021-11-28] MEDS: methaDONE 80 MG, methaDONE 20 MG PO SCH (11:12)
[2021-11-28] MEDS: ALPRAZolam 0.25 MG TABLET PO SCH ×2 (11:14→21:30)
[2021-11-28] MEDS: ENOXAPARIN NA (PORCINE) 40 MG/0.4 ML DISP.SYRIN SQ SCH (11:14)
[2021-11-28 11:15] LABS: HEMATOCRIT 21.3 % (35.4-49); HEMOGLOBIN 7.1 GM/dL (11.7-16.9); MCH 31.1 pg (25.7-33.7); MCHC 33.3 g/dl (32.0-35.9); MEAN CELL VOLUME 93.2 fl (80-96); MEAN PLT VOLUME 6.4 fl (7.5-11.1); PLATELET COUNT 530 10^3/uL (134-434); RBC 2.29 M/mm3 (4.00-5.60); RDW 14.2 % (11.9-15.9); WHITE BLOOD COUNT 9.1 K/mm3 (4.0-10.0)
[2021-11-28] MEDS: FLUTICASONE PROP 0.05% 16 GM NASAL SPRAY NS SCH ×2 (11:15→21:30)
[2021-11-28 11:30] LABS: CALCIUM 8.3 mg/dL (8.5-10.1)
[2021-11-28 11:35] LABS: CREATININE 0.6 mg/dL (0.55-1.3)
[2021-11-28] MEDS: SODIUM CHLORIDE 1,000 ML IV SCH ×2 (15:05→21:31)
[2021-11-28] MEDS: SENNOSIDES 8.6MG TABLET (FP) PO SCH (21:30)
[2021-11-29] MEDS ORDERED: PIPERACILLIN/TAZOBACTAM 3.375 GM VIAL IVPB ONE ×3 (01:04→18:00)
[2021-11-29] MEDS ORDERED: DEXTROSE 5%-WATER - 50 ML IVPB ONE ×3 (01:05→18:00)
[2021-11-29] MEDS: PIPERACILLIN/TAZOB 3.375 GM 3.375 GM in DEXTROSE 5%-WATER - 50 ML IVPB SCH ×3 (01:19→18:14)
[2021-11-29] MEDS ORDERED: IRON SUCROSE INJECTION 300 MG in SODIUM CHLORIDE 235 ML IVPB ONE (07:00)
[2021-11-29] MEDS: ALBUTEROL SO4 2.5/IPRATROPIUM 0.5 INH SOL 3 ML VIAL.NEB. NEB SCH ×2 (07:50→13:45)
[2021-11-29 09:42] LABS: HEMATOCRIT 21.4 % (35.4-49); HEMOGLOBIN 7.1 GM/dL (11.7-16.9); MCHC 33.1 g/dl (32.0-35.9); MEAN CELL VOLUME 93.7 fl (80-96); MEAN PLT VOLUME 6.7 fl (7.5-11.1); PLATELET COUNT 558 10^3/uL (134-434); RBC 2.29 M/mm3 (4.00-5.60); RDW 14.5 % (11.9-15.9); WHITE BLOOD COUNT 8.6 K/mm3 (4.0-10.0)
[2021-11-29 10:14] LABS: CALCIUM 8.1 mg/dL (8.5-10.1)
[2021-11-29 10:15] LABS: BLOOD UREA NITROGEN 10.5 mg/dL (7-18)
[2021-11-29 10:18] LABS: CREATININE 0.6 mg/dL (0.55-1.3)
[2021-11-29] MEDS ORDERED: methaDONE HCL 40 MG DISPERSABLE TABLET ONE (10:36)
[2021-11-29] MEDS ORDERED: methaDONE HCL 10 MG TABLET ONE (10:36)
[2021-11-29] MEDS: methaDONE 80 MG, methaDONE 20 MG PO SCH (10:47)
[2021-11-29] MEDS: ENOXAPARIN NA (PORCINE) 40 MG/0.4 ML DISP.SYRIN SQ SCH (10:51)
[2021-11-29] MEDS: ALPRAZolam 0.25 MG TABLET PO SCH ×2 (10:52→21:38)
[2021-11-29] MEDS: FLUTICASONE PROP 0.05% 16 GM NASAL SPRAY NS SCH ×2 (10:53→21:39)
[2021-11-29] MEDS: SODIUM CHLORIDE 1,000 ML IV SCH ×2 (15:05→18:14)
[2021-11-29] MEDS: SENNOSIDES 8.6MG TABLET (FP) PO SCH ×2 (21:37→21:50)
[2021-11-30] MEDS ORDERED: PIPERACILLIN/TAZOBACTAM 3.375 GM VIAL IVPB ONE ×2 (01:22→09:15)
[2021-11-30] MEDS ORDERED: DEXTROSE 5%-WATER - 50 ML IVPB ONE ×2 (01:22→09:15)
[2021-11-30] MEDS: PIPERACILLIN/TAZOB 3.375 GM 3.375 GM in DEXTROSE 5%-WATER - 50 ML IVPB SCH ×2 (02:20→09:40)
[2021-11-30] MEDS ORDERED: methaDONE HCL 10 MG TABLET ONE (09:14)
[2021-11-30] MEDS ORDERED: methaDONE HCL 40 MG DISPERSABLE TABLET ONE (09:15)
[2021-11-30] MEDS: ALPRAZolam 0.25 MG TABLET PO SCH (09:39)
[2021-11-30] MEDS: FLUTICASONE PROP 0.05% 16 GM NASAL SPRAY NS SCH (09:40)
[2021-11-30] MEDS: ENOXAPARIN NA (PORCINE) 40 MG/0.4 ML DISP.SYRIN SQ SCH (09:40)
[2021-11-30] MEDS: methaDONE 80 MG, methaDONE 20 MG PO SCH (10:10)
[2021-11-30 11:00] LABS: HEMATOCRIT 21.3 % (35.4-49); MCH 30.6 pg (25.7-33.7); MCHC 32.7 g/dl (32.0-35.9); MEAN CELL VOLUME 93.7 fl (80-96); MEAN PLT VOLUME 6.7 fl (7.5-11.1); PLATELET COUNT 541 10^3/uL (134-434); RBC 2.27 M/mm3 (4.00-5.60); RDW 14.1 % (11.9-15.9); WHITE BLOOD COUNT 8.2 K/mm3 (4.0-10.0)
[2021-11-30 13:21] VITALS: TEMP 98
[2021-11-30 14:17] VITALS: BP 98/55; PULSE 80
== END 2021-11-30 16:46 | DRG 177 ==
LOC: FER 22:10 → FM/S 11-23 03:47 → J8W 11-23 14:56
PROVIDERS: ADMIT Internal Medicine; ATTEND Family Medicine
PROC: 05HB33Z Insertion of Infusion Device into Right Basilic Vein, Percutaneous Approach (ICD-10-PCS; principal; 2021-11-30)
PROC: B51MZZA Fluoroscopy of Right Upper Extremity Veins, Guidance (ICD-10-PCS; 2021-11-30)
DX: J85.1 Abscess of lung with pneumonia (principal); E43 Unspecified severe protein-calorie malnutrition; R64 Cachexia; E87.1 Hypo-osmolality and hyponatremia; Z68.1 Body mass index [BMI] 19.9 or less, adult; J44.0 Chronic obstructive pulmonary disease with (acute) lower respiratory infection; F11.20 Opioid dependence, uncomplicated; F19.10 Other psychoactive substance abuse, uncomplicated; F03.90 Unspecified dementia, unspecified severity, without behavioral disturbance, psychotic disturbance, mood disturbance, and anxiety; D50.9 Iron deficiency anemia, unspecified; D72.829 Elevated white blood cell count, unspecified; I95.9 Hypotension, unspecified
CPT/HCPCS: 36415; 36569; 70450-TC; 71045-TC-FY; 71250-TC; 72125-TC; 80048; 80053; 80307; 81003; 81015; 82550; 82962; 83540; 83550; 83735; 84100; 84484; 85025; 85027; 85651; 86140; 87040; 87086; 87899; 93005; 94640; 97116-GP; 97161-GP; 99285-25; C9803; J1756; U0003; U0005

== ENCOUNTER 2024-06-20 17:11 | Emergency (ER) | payer OTHER ==
[2024-06-20 17:29] VITALS: BP 115/81; PULSE 77; RESP 18; TEMP 97.7; BMI 22.4
== END 2024-06-20 18:37 | disposition home or self-care (01) ==
LOC: FER 17:11
DX: U07.1 COVID-19 (principal); R05.9 Cough, unspecified; R09.81 Nasal congestion
CPT/HCPCS: 0241U-QW; 99283-25